=== PATIENT | male | born 1975 | race Two or more races ===

== ENCOUNTER 2022-09-28 16:03 | Emergency (ER) | payer OTHER ==
[~2022-09-28] VITALS: Ht 185.4 cm; Wt 127.0 kg
[2022-09-28] MEDS ORDERED: ATORVASTATIN CA20 MG PO (16:47)
== END 2022-09-28 20:01 | disposition home or self-care (01) ==
LOC: ER 16:03
DX: S73.101A Unspecified sprain of right hip, initial encounter (principal); X58.XXXA Exposure to other specified factors, initial encounter; Y93.9 Activity, unspecified; Y92.9 Unspecified place or not applicable; Y99.9 Unspecified external cause status